=== PATIENT | male | born 1940 | race Hispanic/Latino ===

== ENCOUNTER 2018-03-11 11:15 | Outpatient (CLI) | payer MEDICARE ==
[2018-03-11 12:18] LABS: BUN/Creatinine Ratio 26; Blood Urea Nitrogen 13 mg/dL (9-20); Calcium 9.1 mg/dL (8.4-10.2); Hemolysis Index 17
--- NOTE | 2018-03-11 18:56 | Cat Scan Report ---
FINAL REPORT PROCEDURE: CT ABDOMEN PELVIS WO/W CON TECHNIQUE: Computerized axial tomography of the abdomen and pelvis was performed without contrast followed by computerized axial tomography of the abdomen and pelvis after the IV injection of iodinated nonionic contrast. HISTORY: ABDOMINAL PAIN COMPARISON: No prior studies are available for comparison. FINDINGS: Lower Lung presley: Small amount of dependent atelectasis visualized. Scattered areas of calcified pleural plaquing seen in both lung bases. Indeterminate 4.9 millimeter nodular density seen anterior aspect right middle lobe. Lung bases otherwise are unremarkable. Upper Abdomen: The liver, the gallbladder, the pancreas, the spleen and adrenal glands are unremarkable. Kidneys, Ureters and Urinary bladder: 1.8 centimeter low-density nodule projects from the cortex of the upper 3rd of the right kidney which appears to represent a renal cortical cyst. A few small, subcentimeter low-density nodules are scattered in the renal cortex of both kidneys which are too small to characterize although may represent small renal cortical cysts. Retroperitoneum: Atherosclerotic changes are seen in the abdominal aorta. No aneurysm is visualized. Atherosclerotic changes also visualized in the iliac arteries and common femoral arteries. There is irregularity of the lumen of the common femoral artery on the left. This is best visualized on sagittal image 55 series 601 which appears to represent a large intimal flap. 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 There is mild to moderate stenosis of the celiac trunk image 86 series 601. Nonspecific subcentimeter lymph nodes are seen in the retroperitoneum. No pathologically enlarged lymph nodes are identified. Bowel: Bowel loops are unremarkable. No evidence of bowel obstruction ascites or free intraperitoneal gas. Normal-appearing appendix is seen in the right lower quadrant. Reproductive organs: There is nonspecific mild diffuse prostate enlargement. Other: No acute bony abnormalities are seen. IMPRESSION: Calcified plaquing seen in both lung bases suggesting prior specificity exposure, previous infection or hemorrhage. Nonspecific 4.9 millimeter nodular density anterior aspect right middle lobe. Etiology is uncertain. Consider follow-up CT of the chest to evaluate for other pulmonary nodules. Renal cortical cysts appear to be present as described. Fluoro sclerotic changes are present as described. 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 Mild to moderate stenosis of the celiac trunk also visualized. There is nonspecific mild diffuse prostate enlargement.
== END 2018-03-11 11:16 | disposition home or self-care (01) ==
LOC: CT 11:15
PROVIDERS: ATTEND Internal Medicine
DX: N28.1 Cyst of kidney, acquired (principal); R91.1 Solitary pulmonary nodule; J92.9 Pleural plaque without asbestos; J98.11 Atelectasis; N40.0 Benign prostatic hyperplasia without lower urinary tract symptoms; I70.0 Atherosclerosis of aorta; I70.8 Atherosclerosis of other arteries; I77.4 Celiac artery compression syndrome
CPT/HCPCS: 36415; 74178; 80048; Q9967

== ENCOUNTER 2018-04-02 08:24 | Outpatient (CLI) | payer MEDICARE ==
--- NOTE | 2018-04-09 14:49 | Vascular Lab Report ---
CAROTID DUPLEX STUDY: RIGHT PSVEDV CCA [id number] CCA DIST:8018 ICA PROX:7922 ICA MID:8624 ICA DIST:9723 ECA: 90 VERT: 66 14 LEFT PSVEDV CCA PROX:[id number] CCA DIST:9720 ICA PROX:8115 ICA MID:7620 ICA DIST:5816 ECA: 87 VERT: 47 12 REASON FOR EXAM: Carotid artery bruit. COMMENTS ON THE RIGHT: Doppler frequency analysis is consistent with 16 to 49 percent diameter reduction of the internal carotid artery. A moderate amount of plaque is seen. The common carotid artery is patent. The external carotid artery is patent. The vertebral artery has antegrade flow. COMMENTS ON THE LEFT: Doppler frequency analysis is consistent with 16 to 49 percent diameter reduction of the internal carotid artery. A moderate amount of plaque is seen. The common carotid artery is patent. The external carotid artery is patent. The vertebral artery has antegrade flow. IMPRESSION: Less than 50% diameter reduction in the internal carotid arteries bilaterally. Recommend repeat carotid duplex in 12 months.
== END 2018-04-02 08:25 | disposition home or self-care (01) ==
LOC: VAS 08:24
PROVIDERS: ATTEND Internal Medicine
DX: R09.89 Other specified symptoms and signs involving the circulatory and respiratory systems (principal)
CPT/HCPCS: 93880

== ENCOUNTER 2019-02-24 10:05 | Outpatient (CLI) | payer MEDICARE ==
[2019-02-24 10:53] LABS: Blood Urea Nitrogen 17 mg/dL (9-20)
--- NOTE | 2019-02-24 14:16 | Cat Scan Report ---
PROCEDURE: CT CHEST W CON TECHNIQUE: CT of chest with IV contrast. Coronal and sagittal reconstructed images provided. CT DOSE LENGTH PRODUCT: 459.1 mGy-cm. HISTORY: Solitary pulmonary nodule, PLEASE FAX RESULTS TO [id number] COMPARISONS: CT abdomen pelvis March 11, 2018. FINDINGS: 4.8 mm subpleural nodule right middle lobe series 2:79. Stable. No other pulmonary nodules. No pneumothorax. No consolidation. No effusion. Bilateral pleural plaques . Lower pleural plaques are stable compared to the prior. No endobronchial lesions. Main pulmonary artery is unremarkable. No aneurysm. No dissection. Major branch arteries are patent with contrast. Ioqj-ge-bzuwegpi atherosc lerotic disease. 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 Cardiac silhouette is within normal limits. No pericardial effusion. Coronary artery disease. There is no axillary adenopathy. There is no hilar or mediastinal mass or adenopathy. Limited images of the thyroid gland are unremarkable. Limited images of the esophagus are unremarkable. Bones: No suspicious osseous lesions on this limited examination of the skeleton. Metastatic disease better evaluated with bone scan. Degenerative changes are present in the spine. IMPRESSION: * Stable right middle lobe pulmonary nodule. 2017 FLEISCHNER GUIDELINES FOR PULMONARY NODULE MANAGEMENT Solitary nodule size: <6 mm * low risk patients: no follow-up needed * high risk patients: optional CT at 12 months Solitary nodule size: 6-8 mm * low risk patients: follow-up at 6-12 months, then consider further follow-up at 18-24 months * high risk patients: initial follow-up CT at 6-12 months and then at 18-24 months if no change Solitary nodule size: >8 mm * either low or high risk patients * consider follow-up CT at 3 months, and/or CT-PET, and/or biopsy and then at 18-24 months if no chiquis nge. Note: newly detected indeterminate nodule in persons 35 years of age or older Low risk patients: minimal or absent history of smoking and or other known risk factors High risk patients: history of smoking or of other known risk factors (e.g. first degree relative wit h lung cancer, or exposure to asbestos, radon, uranium) This document is electronically signed by Nikolay Wei MD., February 24 2019 02:14:46 PM ET
== END 2019-02-24 10:06 | disposition home or self-care (01) ==
LOC: CT 10:05
PROVIDERS: ATTEND Internal Medicine
DX: R91.1 Solitary pulmonary nodule (principal)
CPT/HCPCS: 36415; 71260; 82565; 84520; Q9967

== ENCOUNTER 2020-01-07 09:52 | Outpatient (CLI) | payer MEDICARE ==
[2020-01-07 11:03] LABS: Blood Urea Nitrogen 18 mg/dL (9-20)
--- NOTE | 2020-01-07 12:42 | Cat Scan Report ---
CT chest with contrast INDICATION : LUNG NODULE,SOLITARY,NODULE OF MIDDLE LOBE RT LUNG. TECHNIQUE: 100 mL of intravenous contrast administered. All CT scans at this location are performed using CT dose reduction for ALARA by means of automated exposure control. COMPARISON: CT chest from 02/24/2019 FINDINGS: There is again scattered mild multifocal pleural plaque formation with some calcification. There is a stable 5 mm nodule in the right middle lobe on image #79 of series #2. The lungs are othe rwise clear. No consolidation or pleural effusion. There is mild atherosclerotic disease within the coronary arteries. There are shotty mediastinal lymp h nodes but no pathologic adenopathy. Limited imaging of the upper abdomen shows nothing acute. There is a simple cyst in the upper pole th e right kidney. Mild degenerative changes are present in the spine with nothing acute. IMPRESSION: 1. Stable 5 mm nodule in the right middle lobe. Please see below recommendations. Based on more recen t recommendations, this finding does not require further follow-up. 2. Stable multifocal calcified pleural plaque formation in both lungs. INCIDENTAL PULMONARY NODULE RECOMMENDATION RECOMMENDATION: Solid Nodule size <6 mm -- Single or Multiple - Low Risk Patient: No routine follow-up - High Risk Patient: Optional CT at 12 months Note These recommendations do not apply to lung cancer screening, patients with immunosuppression, o r patients with known primary cancer. Note Newly detected indeterminate nodule in persons 35 years of age or older. Persons under the age of 35 should not receive follow-up unless there is a known primary cancer. Note A Perifissural Nodule is a fissure-attached/subpleural, homogeneous, solid nodule that had smoo th margins and an oval, lentiform, or triangular shape. They represent about 20% of nodules detected in lung cancer screening, are invariably benign, and do not require follow-up. Nodules 10 mm or large r (or those with suspicious features) will continue to be managed based on the size criteria. Low Risk Patient -- minimal or absent history of smoking and of other known risk factors. High Risk Patient -- history of smoking or of other known risk factors. Nodule dimensions are average of long and short axes, rounded to the nearest millimeter. Based on 2017 Fleischner Society Guidelines found in Radiology 2017 284:228-243. https://doi.[email or web address] https://www.ncbi.nlm.nih.gov/pmc/articles/RWJ1336545/ Signer Name: Chano Vernon MD Signed: 01/07/2020 12:38 PM Workstation Name: [id number]
== END 2020-01-07 09:53 | disposition home or self-care (01) ==
LOC: CT 09:52
PROVIDERS: ATTEND Internal Medicine
DX: J92.9 Pleural plaque without asbestos (principal); I25.10 Atherosclerotic heart disease of native coronary artery without angina pectoris; R91.1 Solitary pulmonary nodule
CPT/HCPCS: 36415; 71260; 82565; 84520; Q9967